=== PATIENT | female | born 1980 | race American Indian/Alaskan Native ===

== ENCOUNTER 2017-01-22 17:11 | Emergency (ER) | payer MEDICAID ==
[2017-01-22 18:12] VITALS: BP 127/91
[2017-01-22 18:32] LABS: Basophils % (Auto) 1.3 % (0.0-1.8); Eosinophils % (Auto) 2.6 % (0.0-4.3); Hematocrit 43.2 % (30.3-42.9); Hemoglobin 14.2 gm/dl (10.1-14.3); Mean Corpuscular HGB Conc 33 % (30-34); Mean Corpuscular Hemoglobin 29 pg (28-32); Mean Corpuscular Volume 89 fl (79-97); Platelet Count 278 K/mm3 (140-440); Red Blood Count 4.84 M/mm3 (3.65-5.03); Red Cell Distribution Width 13.6 % (13.2-15.2); White Blood Count 7.8 K/mm3 (4.5-11.0)
[2017-01-22 18:57] LABS: Alanine Aminotransferase 25 units/L (7-56); Albumin 4.1 g/dL (3.9-5); Albumin/Globulin Ratio 1.2 %; Alkaline Phosphatase 83 units/L (35-129); Anion Gap 17 mmol/L; Blood Urea Nitrogen 16 mg/dL (7-17); Carbon Dioxide 26 mmol/L (22-30); Chloride 101.1 mmol/L (98-107); Glucose 76 mg/dL (65-100); Lipase 11 units/L (13-60); Potassium 3.7 mmol/L (3.6-5.0); Sodium 140 mmol/L (137-145); Total Protein 7.6 g/dL (6.3-8.2)
[2017-01-22 18:58] LABS: Bilirubin,Urine NEG (Negative); Blood,Urine NEG (Negative); Ketones,Urine NEG (Negative); Leukocyte Esterase,Urine NEG (Negative); Mucus,Urine 1+ /HPF; Nitrite,Urine NEG (Negative); Protein,Urine <15 mg/dL mg/dL (Negative)
--- NOTE | 2017-01-23 00:09 | Emergency Department Report ---
HPI - General Chief Complaint: Abdominal Pain Time Seen by Provider: 01/22/17 23:22 - HPI HPI: This is a 36-year-old Afro-[place] female who presents to the emergency department with the complaint of a one-month history of intermittent lower abdominal/pelvic discomfort. Patient says that last night she had some dark brown vaginal bleeding but that resolved without any intervention. She also knows that she has a history of fibroids recently diagnosed by her [facility], Dr. Rosales. She does not have a primary care doctor. She's been taking ibuprofen for her discomfort with some transient relief. She also complains of some intermittent nonspecific dizziness. She otherwise denies any significant past medical history. She has a past surgical history of a tubal ligation. No recent travel or sick contacts at home. She denies any headache, vision change , fever, slurred speech, chest pain, shortness of breath. ED Past Medical Hx - Past Medical History Previous Medical History?: No Additional medical history: murmur, fibroids, pinched nerve. BULGING DISC - Surgical History Additional Surgical History: tubal ligation 2014 - Social History Smoking Status: Never Smoker Substance Use Type: None - Medications Home Medications: Home Medications Medication Instructions Recorded Confirmed Last Taken Type Acetaminophen/Codeine [Tylenol 1 tab PO Q6H PRN #15 tab 02/25/14 Unknown Rx /Codeine # 3 tab] Methocarbamol [Robaxin TAB] 750 mg PO Q8H PRN #21 tablet 02/25/14 Unknown Rx Naproxen Sodium (Nf) [Anaprox DS 550 mg PO BID PRN #14 tablet 02/25/14 Unknown Rx TAB] Amoxicillin [Amoxicillin TAB] 875 mg PO BID #14 tablet 02/06/16 Unknown Rx Fluticasone [Flonase] 1 spray NS QDAY #1 bottle 02/06/16 Unknown Rx traMADol [Ultram 50 MG tab] 50 mg PO Q6HR PRN #15 tablet 02/06/16 Unknown Rx Cyclobenzaprine HCl [Flexeril 5 MG 5 mg PO Q8HR PRN #30 tablet 04/10/16 Unknown Rx TAB] Ibuprofen [Motrin 800 MG tab] 800 mg PO Q8HR PRN #30 tablet 04/10/16 Unknown Rx Ibuprofen [Motrin 600 MG tab] 600 mg PO Q8H PRN #20 tablet 01/23/17 Unknown Rx ED Review of Systems ROS: Stated complaint: ABDOMINAL PAIN Other details as noted in HPI Comment: All other systems reviewed and negative Constitutional: denies: chills, fever Eyes: denies: eye pain, eye discharge, vision change ENT: denies: ear pain, throat pain Respiratory: denies: cough, shortness of breath, wheezing Cardiovascular: denies: chest pain, palpitations Gastrointestinal: abdominal pain (pelvic pain). denies: vomiting Genitourinary: denies: urgency, dysuria, discharge Musculoskeletal: denies: back pain, joint swelling, arthralgia Skin: denies: rash, lesions Neurological: other (dizziness). denies: headache, weakness, paresthesias Physical Exam - Physical Exam Vital Signs: Vital Signs 01/22/17 18:02 Temperature 98.3 F Pulse Rate 76 Respiratory 18 Rate Blood Pressure 127/91 O2 Sat by Pulse 100 Oximetry Physical Exam: GENERAL: The patient is well-developed well-nourished. HEENT: Normocephalic. Atraumatic. Extraocular motions are intact. Patient has moist mucous membranes. Pupils equal reactive to light bilaterally. No nystagmus. NECK: Supple. Trachea is midline. CHEST/LUNGS: Clear to auscultation. There is no respiratory distress noted. HEART/CARDIOVASCULAR: Regular. There is no tachycardia. There is no gallop rub or murmur. ABDOMEN: Abdomen is soft, nontender. Patient has normal bowel sounds. There is no abdominal distention. SKIN: Skin is warm and dry. NEURO: The patient is awake, alert, and oriented. The patient is cooperative. The patient has no focal neurologic deficits. The patient has normal speech and gait. Cranial nerves II through XII grossly intact. MUSCULOSKELETAL: There is no tenderness or deformity. There is no limitation range of motion. There is no evidence of acute injury. Muscle strength 5 out of 5 for upper and lower extremity bilaterally. : Deferred ED Course Vital Signs 01/22/17 18:02 Temperature 98.3 F Pulse Rate 76 Respiratory 18 Rate Blood Pressure 127/91 O2 Sat by Pulse 100 Oximetry ED Medical Decision Making - Lab Data Result diagrams: 01/22/17 18:15 01/22/17 18:15 - EKG Data -: EKG Interpreted by Me EKG shows normal: sinus rhythm, axis, intervals (prolonged ID interval indicating first degree AV block), QRS complexes, ST-T waves Rate: normal - EKG Data When compared to previous EKG there are: previous EKG unavailable Interpretation: other (1st degree av block) - Radiology Data Radiology results: report reviewed Transvaginal ultrasound shows no ovarian torsion or mass. There are bilateral cystic follicles. There is minimal free pelvic fluid. - Medical Decision Making 36 year old female presents the emergency department with some chronic lower abdominal and/or pelvic discomfort as well as some nonspecific dizziness. EKG did not show any signs of ST elevation NM or dysrhythmia but did show a first degree AV block. It is possible that the patient has some transient bradycardia causing her dizziness. She does not have any focal, motor or sensory deficits. Cranial nerves are intact. Patient labs are unremarkable including normal thyroid function and no signs of infection. There is no electrolyte abnormalities or renal insufficiency or glucose abnormalities. The patient says she has a history of fibroids. A transvaginal ultrasound was done that did not show any ovarian torsion, fibroids or any significant acute process. The patient has good follow-up with [facility]. She was given referrals for primary care. She will return to the ER for any worsening of her symptoms or any acute distress. She was also given a cardiology referral to look into her first-degree AV block. - Differential Diagnosis fibroids, UTI, thyroid dysfunction, hypoglycemia Critical Care Time: No Critical care attestation.: If time is entered above; I have spent that time in minutes in the direct care of this critically ill patient, excluding procedure time. ED Disposition Clinical Impression: Pelvic pain, Dizziness, 1St degree AV block Disposition: DISCHARGED TO HOME OR SELFCARE Is pt being admited?: No Condition: Stable Instructions: Chronic Pelvic Pain in Women (ED), Lightheadedness (ED), Dizziness (ED) Additional Instructions: Please follow-up with a primary care doctor in the next few days. Follow-up with your [facility] [employer] [facility]. Return to the emergency department with any worsening of your symptoms or any acute distress. Prescriptions: Ibuprofen [Motrin 600 MG tab] 600 mg PO Q8H PRN #20 tablet PRN Reason: Pain Referrals: [facility] [Outside] - 3-5 Days DAMIAN TAYLOR MD [Staff Physician] - 3-5 Days PRIMARY MD RYLAN [Primary Care Provider] - 3-5 Days CONSTANTINO ONEILL MD [Staff Physician] - 3-5 Days Forms: Accompanied Note
--- NOTE | 2017-01-23 01:44 | Ultrasound Report ---
FINAL REPORT PROCEDURE: US TRANSVAGINAL TECHNIQUE: Real-time transvaginal sonography in multiple planes of the pelvis was performed with image documentation. This examination was performed without Doppler. Vascular abnormalities, including ovarian torsion, will not be detectable without Doppler evaluation. CPT 36239 HISTORY: pelvic pain COMPARISON: No prior studies are available for comparison. FINDINGS: UTERUS Size: 7.3 x 4.2 x 5.8 cm. Endometrial thickness: 11.4 mm. There is a 9 millimeter diameter cystic structure versus fluid in the lower uterine segment. This is nonspecific. Orientation: anteverted. Cervix: Normal. Fibroids/masses: None. RIGHT Ovary: 2.9 x 2 x 2.8 cm. Appearance: There is a 2 centimeter cystic follicle.. LEFT Ovary: 2.2 x 1 x 2.4 cm. Appearance: There is a 7 millimeters cystic follicle.. Pelvic fluid: There is minimal free pelvic fluid.. Other: None. IMPRESSION: There is no ovarian torsion or mass. There are bilateral cystic follicles. There is minimal free pelvic fluid..
--- NOTE | 2017-01-23 01:48 | Ultrasound Report ---
FINAL REPORT PROCEDURE: US pelvis duplex Doppler TECHNIQUE: Real-time transabdominal sonogram with duplex Doppler HISTORY: pelvic pain COMPARISON: No prior studies are available for comparison. FINDINGS: UTERUS Size: 7.3 x 4.2 x 5.8 cm. Endometrial thickness: 11.4 mm. There is a 9 millimeter diameter cystic structure versus fluid in the lower uterine segment. This is nonspecific. Orientation: anteverted. Cervix: Normal. Fibroids/masses: None. RIGHT Ovary: 2.9 x 2 x 2.8 cm. Appearance: There is a 2 centimeter cystic follicle.. LEFT Ovary: 2.2 x 1 x 2.4 cm. Appearance: There is a 7 millimeters cystic follicle.. Pelvic fluid: There is minimal free pelvic fluid.. Other: None. IMPRESSION: There is no ovarian torsion or mass. There are bilateral cystic follicles. There is minimal free pelvic fluid..
--- NOTE | 2017-01-23 08:56 | XRay Report ---
Supine and upright views of the abdomen: Abdominal pain. Tubal ligation clips are identified in the left pelvis. The abdominal gas pattern is unremarkable. No free air, air-fluid levels, soft tissue mass. Impression: No acute pathology identified.
== END 2017-01-23 02:34 | disposition home or self-care (01) ==
LOC: ED 17:11
DX: I44.0 Atrioventricular block, first degree (principal); R10.2 Pelvic and perineal pain; R42 Dizziness and giddiness
CPT/HCPCS: 36415; 74020; 76830; 80053; 81001; 83690; 84443; 85025; 93005; 93010; 93975